=== PATIENT | female | born 1975 ===

== ENCOUNTER 2024-06-07 10:32 | Day surgery (SDC) | payer OTHER ==
[~2024-06-07] VITALS: Ht 167.6 cm; Wt 83.6 kg
[~2024-06-07 10:32] MED LIST: NS 500 ML IV ONE
[2024-06-07] MEDS ORDERED: OXYC10ER PO (11:57)
[2024-06-07] MEDS ORDERED: MULVITA PO (11:58)
[2024-06-07] MEDS ORDERED: Midazolam HCl 1MG / ML 2ML Vial ONE (12:23)
[2024-06-07] MEDS ORDERED: NS 500 ML IV ONE (12:23)
[2024-06-07] MEDS ORDERED: FentaNYL Citrate 50 MCG/ML 2 ML Injection ONE (12:23)
== END 2024-06-07 13:16 | disposition home or self-care (01) ==
LOC: ORSCSDS 10:32
PROVIDERS: Orthopaedic Surgery
PROC: 0LN70ZZ Release Right Hand Tendon, Open Approach (ICD-10-PCS; principal; 2024-06-07 12:30)
DX: M65.331 Trigger finger, right middle finger (principal); Z87.891 Personal history of nicotine dependence; E66.9 Obesity, unspecified; Z68.29 Body mass index [BMI] 29.0-29.9, adult
CPT/HCPCS: J2250; J3010; J7040